=== PATIENT | male | born 1950 | race Caucasian/White ===

== ENCOUNTER 2022-10-25 09:25 | Emergency (ER) | payer OTHER, MEDICARE ==
[2022-10-25 09:35] LABS: BASOPHILS 0.6 % (0-2); EOSINOPHILS 3.9 % (0-6); HEMATOCRIT 40.5 % (35.0-50.0); HEMOGLOBIN 13.5 g/dL (12.0-18.0); LYMPHOCYTES 21.7 % (24-44); MCH 29.6 (27-36); MCHC 33.4 g/dl (30-36); MCV 88.5 fl (81-99); MONOCYTES 8.4 % (0-12); NEUTROPHILS 65.4 % (39-80); PLATELET COUNT 191 K/uL (140-440); RBC 4.58 M/ul (4.3-5.7); RDW 13.6 (10.5-15.0)
[2022-10-25 09:58] LABS: ALBUMIN 3.6 g/dL (3.4-5.0); ALCOHOL, MEDICAL <3 ng/dL (<3); ALKALINE PHOSPHATASE 135 U/L (46-116); ALT (SGPT) 64 U/L (14-59); ANION GAP 11.9 (7-21); AST (SGOT) 47 U/L (15-37); BILIRUBIN, TOTAL 0.9 ng/dL (0.2-1.0); BUN/CREATININE RATIO 22.11 (6.0-28.6); CALCIUM 8.9 mg/dL (8.5-10.1); CARBON DIOXIDE 29 mmol/L (21-32); CHLORIDE 103 mmol/L (98-107); CREATININE, SERUM 1.04 mg/dL (0.70-1.30); GLOMERULAR FILTRATION RATE,EST 77 mL/min (>60); POTASSIUM 3.9 mmol/L (3.5-5.1); PROTEIN, TOTAL 7.2 g/dL (6.4-8.2); UREA NITROGEN 23 mg/dL (7-18)
[2022-10-25 11:00] VITALS: BP 143/67
== END 2022-10-25 10:45 | disposition home or self-care (01) ==
LOC: ED 09:25
PROVIDERS: Emergency Medicine
DX: S00.01XA Abrasion of scalp, initial encounter (principal); V80.02XA Occupant of animal-drawn vehicle injured by fall from or being thrown from animal-drawn vehicle in noncollision accident, initial encounter
CPT/HCPCS: 36415; 70450; 72125; 80053; 85025; 99283-25; G0480